=== PATIENT | male | born 1980 | race Two or more races ===

== ENCOUNTER 2022-06-09 13:40 | Inpatient (IN) | payer OTHER, SELFPAY ==
[2022-06-09 14:17] VITALS: BP 118/63; PULSE 127; RESP 20; TEMP 36.4; O2SAT 97; BMI 25.6
[2022-06-09 14:35] LABS: Glucose, Whole Blood 567 mg/dL (60-115)
[2022-06-09 14:38] LABS: Basophils Absolute Auto 0.1 X10*3/uL (0.0-0.2); Basophils Percent Auto 0.4 % (0-2); Hematocrit 46.1 % (42.0-52.0); Hemoglobin 14.6 g/dl (14.0-18.0); Imm Gran Abs Auto 0.12 X10*3/uL (0.00-0.03); Imm Gran Pct Auto 0.5 % (0.0-0.4); Lymphocytes Absolute Auto 0.7 X10*3/uL (1.2-4.9); Lymphocytes Percent Auto 3.2 % (20-40); MANUAL DIFF FLAG SCAN; Mean Corpuscular HGB Conc 31.7 g/dl (31.0-36.0); Mean Corpuscular Hemoglobin 27.4 pg (27.0-33.0); Mean Corpuscular Volume 86.7 fL (80.0-98.0); Mean Platelet Volume 10.8 fL (9.4-12.4); Monocytes Absolute Auto 0.5 X10*3/uL (0.1-1.2); Monocytes Percent Auto 2.1 % (2-11); Neutrophils Absolute Auto 21.1 x10*3/uL (2.0-8.3); Neutrophils Percent Auto 93.8 % (45-73); Platelet Count 350 X10*3/uL (160-400); Red Blood Count 5.32 X10*6/uL (4.60-5.80); Red Cell Distribution Width 13.2 % (11.0-16.0); SCAN SMEAR FLAG 1; White Blood Count 22.5 X10*3/uL (4.8-10.8)
[2022-06-09 14:49] LABS: Acetone, serum QL Large (Negative)
[2022-06-09 14:59] LABS: SLIDE REVIEW VERIFIED
[2022-06-09 15:06] LABS: Alanine Aminotransferase 26 U/L (0-40); Albumin Level 4.8 g/dL (3.5-5.0); Alkaline Phosphatase 110 U/L (39-117); Aspartate Amino Transferase 16 U/L (5-37); Bilirubin Direct 0.2 mg/dL (0.0-0.5); Bilirubin Total 0.4 mg/dL (0.0-1.0); Blood Urea Nitrogen 25 mg/dL (9-16); Calcium 9.3 mg/dL (8.4-10.2); Creatinine Clr Calc Pharmacy 50.4; Estimated Glomerular Filt Rate 37; Lipase 12 U/L (8-78); Total Protein 8.2 g/dL (6.5-8.0)
[2022-06-09 15:11] LABS: Anion Gap 36 (12-20); Carbon Dioxide 5 mmol/L (22-29); Chloride 95 mmol/L (96-108); Glucose Random 709 mg/dL (60-115); Potassium 6.2 mmol/L (3.3-5.1); Sodium 130 mmol/L (135-145)
--- NOTE | 2022-06-09 15:30 | ECG_ITS ---
Test Reason : abnormal labwork Blood Pressure : / mmHG Vent. Rate : 118 BPM Atrial Rate : 118 BPM P-R Int : 150 ms QRS Dur : 086 ms QT Int : 344 ms P-R-T Axes : 064 083 051 degrees QTc Int : 482 ms Sinus tachycardia Otherwise normal ECG No previous ECGs available Referred By: Oma King Electronically Signed By:JUDD BETTENCOURT MD
--- NOTE | 2022-06-09 15:37 | ED.GENADULT ---
HPI - General Adult General Chief complaint: General Medical Stated complaint: weak sugar low diabetic Time Seen by Provider: 06/09/22 15:22 Source: patient Mode of arrival: ambulatory History of Present Illness HPI narrative: Patient comes to the emergency room complaining of hyperglycemia, states that he ran out of insulin 2 days ago. Patient states that he is usually compliant with his medication. Related Data Allergies Allergy/AdvReac Type Severity Reaction Status Date / Time Unable to Assess Allergy Unverified 06/09/22 15:23 Review of Systems Review of Systems: Constitutional : No Weight loss, No Fever, No Chills, No Night Sweats, No Fatigue, No Malaise ENT/Mouth : No Hearing loss, No Ear Pain, No Nasal Congestion, No Sinus Pain, No Hoarseness, No sore throat, No Rhinorrhea, No Swallowing Difficulty Eyes: No Eye Pain, No Swelling, No Redness, No Foreign Body, No Discharge, No Vision Changes Cardiovascular : No Chest Pain, No SOB, No Dyspnea on Exertion, No Orthopnea, No Edema, No Palpitations Respiratory : No Cough, No Sputum, No Wheezing, No Smoke Exposure, No Dyspnea Gastrointestinal : Complaining of nausea and vomiting, No Diarrhea, No Constipation, mild diffuse abdominal discomfort Genitourinary : no irregular bleeding, No Dysuria, No Urinary Frequency, No Hematuria, No Urinary Incontinence, No Urgency, No Flank Pain, No Urinary Flow Changes, No Hesitancy Musculoskeletal : No joint pain, No Myalgias, No Joint Swelling Skin : No Skin Lesions, No rash Neuro : No Weakness, No Numbness, No Paresthesias, No Loss of Consciousness, No Dizziness, No Headache Psych : No Anxiety/Panic, No Depression, No SI/HI/AH/VH, No Social Issues, Heme/Lymph: No Bruising, No Bleeding,No Lymphadenopathy Endocrine : No Polyuria, No Polydipsia, No Temperature Intolerance [facility] Past Medical History Medical History (Updated 06/09/22 @ 16:27 by Oma King MD) Chronic back pain Diabetes Social History Social History Alcohol intake: never Patient Tobacco Use Status: Never used Tobacco Use of substances other than those prescribed or required for medical reasons: No Advance Directives: No Advance Directives Information Provided: No Physical Exam ED Vital Signs: Vital Signs - 24 hr 06/09/22 14:17 Temperature 97.6 F Pulse Rate 127 H Respiratory Rate 20 Blood Pressure 118/63 Pulse Oximetry 97 Oxygen Delivery Method Room Air BMI result Body Mass Index 25.6 Const Other: Appearance: Alert. Oriented X3. No acute distress. Eyes: Pupils equal, round and reactive to light. ENT: Pharynx normal. Neck: Normal inspection. Neck supple. No lymph nodes noted. No crepitus CVS: Normal heart rate and rhythm. Pulses normal. Normal S1 and S2 Respiratory: No respiratory distress. Breath sounds normal. No Wheezing. No rales Abdomen: Soft and nontender. No rigidity. No distention. Skin: Skin warm and dry. Normal skin color. Normal skin turgor. Extremities: No lower extremity edema. No Lacerations. No Rash Neuro: Oriented X 3. No motor deficit. No sensory deficit. Moving all extremities. No slurred speech. CN 2 through 12 grossly intact Psych: calm, cooperative, normal affect Course Course Course Narrative: Patient receiving 2 L of IV fluids, 10 units of insulin push, on an insulin drip, and a bicarb drip. Patient was also given calcium gluconate I discussed the patient with Dr. Landon, patient being admitted for DKA Medical Decision Making Lab Data Result diagrams: 06/09/22 14:30 06/09/22 14:30 Labs: Lab Results 06/09/22 06/09/22 06/09/22 Range/Units 14:07 14:30 14:30 WBC 22.5 H (4.8-10.8) X10*3/uL RBC 5.32 (4.60-5.80) X10*6/uL Hgb 14.6 (14.0-18.0) g/dl Hct 46.1 (42.0-52.0) % MCV 86.7 (80.0-98.0) fL MCH 27.4 (27.0-33.0) pg MCHC 31.7 (31.0-36.0) g/dl RDW 13.2 (11.0-16.0) % Plt Count 350 (160-400) X10*3/uL MPV 10.8 (9.4-12.4) fL Immature Gran % (Auto) 0.5 H (0.0-0.4) % Neut % (Auto) 93.8 H (45-73) % Lymph % (Auto) 3.2 L (20-40) % Alexander % (Auto) 2.1 (2-11) % Eos % (Auto) 0.0 (0-4) % Baso % (Auto) 0.4 (0-2) % Lymph # (Auto) 0.7 L (1.2-4.9) X10*3/uL Alexander # (Auto) 0.5 (0.1-1.2) X10*3/uL Eos # (Auto) 0.0 (0.0-0.4) X10*3/uL Baso # (Auto) 0.1 (0.0-0.2) X10*3/uL Abs Immat Gran (auto) 0.12 H (0.00-0.03) X10*3/uL Absolute Neuts (auto) 21.1 H (2.0-8.3) x10*3/uL Absolute Nucleated RBC 0.000 (0.0-0.012) X10*3/uL Nucleated RBC % (auto) 0.0 (0.0-0.2) /100WBC Smear Tech's Comments VERIFIED Sodium 130 L (135-145) mmol/L Potassium 6.2 H* (3.3-5.1) mmol/L Chloride 95 L (96-108) mmol/L Carbon Dioxide 5 L* (22-29) mmol/L Anion Gap 36 H (12-20) BUN 25 H (9-16) mg/dL Creatinine 1.99 H (0.5-1.4) mg/dL Estim Creat Clear Calc 50.4 Estimated GFR 37 POC Glucose 567 H* (60-115) mg/dL Random Glucose 709 H* (60-115) mg/dL Calcium 9.3 (8.4-10.2) mg/dL Total Bilirubin 0.4 (0.0-1.0) mg/dL Direct Bilirubin 0.2 (0.0-0.5) mg/dL AST 16 (5-37) U/L ALT 26 (0-40) U/L Alkaline Phosphatase 110 (39-117) U/L Total Protein 8.2 H (6.5-8.0) g/dL Albumin 4.8 (3.5-5.0) g/dL Lipase 12 (8-78) U/L Acetone, Qual Cancelled 06/09/22 Range/Units 14:30 WBC (4.8-10.8) X10*3/uL RBC (4.60-5.80) X10*6/uL Hgb (14.0-18.0) g/dl Hct (42.0-52.0) % MCV (80.0-98.0) fL MCH (27.0-33.0) pg MCHC (31.0-36.0) g/dl RDW (11.0-16.0) % Plt Count (160-400) X10*3/uL MPV (9.4-12.4) fL Immature Gran % (Auto) (0.0-0.4) % Neut % (Auto) (45-73) % Lymph % (Auto) (20-40) % Alexander % (Auto) (2-11) % Eos % (Auto) (0-4) % Baso % (Auto) (0-2) % Lymph # (Auto) (1.2-4.9) X10*3/uL Alexander # (Auto) (0.1-1.2) X10*3/uL Eos # (Auto) (0.0-0.4) X10*3/uL Baso # (Auto) (0.0-0.2) X10*3/uL Abs Immat Gran (auto) (0.00-0.03) X10*3/uL Absolute Neuts (auto) (2.0-8.3) x10*3/uL Absolute Nucleated RBC (0.0-0.012) X10*3/uL Nucleated RBC % (auto) (0.0-0.2) /100WBC Smear Tech's Comments Sodium (135-145) mmol/L Potassium (3.3-5.1) mmol/L Chloride (96-108) mmol/L Carbon Dioxide (22-29) mmol/L Anion Gap (12-20) BUN (9-16) mg/dL Creatinine (0.5-1.4) mg/dL Estim Creat Clear Calc Estimated GFR POC Glucose (60-115) mg/dL Random Glucose (60-115) mg/dL Calcium (8.4-10.2) mg/dL Total Bilirubin (0.0-1.0) mg/dL Direct Bilirubin (0.0-0.5) mg/dL AST (5-37) U/L ALT (0-40) U/L Alkaline Phosphatase (39-117) U/L Total Protein (6.5-8.0) g/dL Albumin (3.5-5.0) g/dL Lipase (8-78) U/L Acetone, Qual Large H Critical Care Time Critical Care Time Critical Care Time: Yes Total Critical Care Time: 70 Attestation: I have personally provided critical care time. Time includes review of lab data, radiology results, discussion with consultants, and monitoring for potential decompensation. Intervention performed as documented. Discharge Plan Discharge Clinical Impression: DKA (diabetic ketoacidosis), Acute hyperkalemia, Acute kidney injury Patient Disposition: Admitted As Inpatient
[2022-06-09] MEDS: Insulin Regular, Human 100 UNIT/ML 3 ML VIAL 10 UNIT IVPUSH (15:57)
[2022-06-09] MEDS: ondansetron HCL 4 MG/2 ML VIAL IVPUSH (16:04)
[2022-06-09] MEDS: 0.9 % Sodium Chloride 2,000 ML 999 ML IVCONT (16:05)
[2022-06-09] MEDS: Insulin Regular/NS 100 UNIT/100 ML PLAST..BAG 8 UNIT IVCONT (16:15)
[2022-06-09] MEDS: Calcium Gluconate/NaCl,Iso-Osm 2 GM/100 ML PLAST..BAG IV (16:17)
[2022-06-09 16:25] VITALS: BP 130/54; PULSE 113; RESP 26; O2SAT 100
--- NOTE | 2022-06-09 16:26 | PC.NURSE ---
pt a&ox3, vss - sinus tach on monitor. pt reporting 6/10 chest pain. 20G IV placed left AC, medicated per provider order, 2000mL NaCl running, IV insulin started at 8u/hr. pt pending ICU provider.
[2022-06-09 16:37] LABS: Estimated Average Glucose 335 mg/dL; Hemoglobin A1c % 13.3 %
[2022-06-09] MEDS: Lactated Ringers 500 ML 999 ML IV (16:57)
--- NOTE | 2022-06-09 16:59 | PC.NURSE ---
NaCl discontinued per provider order, 500mL LR running - medication not scanning.
[2022-06-09 17:24] LABS: COVID-19 Test Negative (Negative); IDNOW Serial# 16C4AD1C
[2022-06-09 17:47] LABS: Venous Blood Gas Refer to POC result
[2022-06-09 17:48] LABS: VBG Base Excess -26.7 mmol/L; VBG HCO3 3 mmol/L (22-26); VBG pCO2 15 mmHg; VBG pO2 90 mmHg
[2022-06-09 17:49] LABS: VBG pH 6.95 (7.32-7.43)
--- NOTE | 2022-06-09 17:57 | PHA.MEDREC ---
Pharmacy Consult ? Medication Reconciliation Pharmacy has completed the medication reconciliation. Patient reports only taking insulins and oxycontin. Patient has a recent filled of Percocet on 05/21/22. Patient reports not taking atorvastatin and enalapril even though there are recent fills for the medications. Vangie Dunlap, PharmD
[2022-06-09 18:00] VITALS: BP 123/70; PULSE 131; RESP 23; O2SAT 99
[2022-06-09 18:22] LABS: Glucose, Whole Blood 422 mg/dL (60-115)
[2022-06-09 18:23] LABS: Phosphorus 8.2 mg/dL (2.7-4.5)
--- NOTE | 2022-06-09 18:28 | PC.NURSE ---
IV insulin titrated down to 4u/hr per protocol. urine sample obtained.
[2022-06-09 18:45] LABS: Appearance Urine CLEAR; Color Urine YELLOW; Glucose Urine UA 500 MG/DL (NEG); Leukocyte Esterase Urine NEG (NEG); Nitrite Urine NEG (NEG); PH 5.5 (5.0-8.0); Specific Gravity - Urine >= 1.030 (1.005-1.025); UACC Culture Trigger NO; Urine Blood TRACE (NEG); Urine Ketones >=80 MG/DL (NEG); Urine Protein TRACE MG/DL (NEG-TRACE)
[2022-06-09 18:56] LABS: RBC Urine 0-2 /HPF (0); WBC Urine 0-2 /HPF (0-4)
[2022-06-09 18:57] LABS: Amphetamine Screen Urine Not Detected (Not Detect); Barbiturates, Urine Not Detected (Not Detect); Benzodiazepines Screen Urine Not Detected (Not Detect); Cannabinoid Screen Urine Not Detected (Not Detect); Cocaine Screen Urine Not Detected (Not Detect); Fentanyl, urine Not Detected (Not Detect); Opiate Screen Urine Not Detected (Not Detect); Phencyclidine Screen Urine Not Detected (Not Detect); Squamous Epithelial Cell Urine TRACE /LPF
[2022-06-09 19:25] LABS: Glucose, Whole Blood 354 mg/dL (60-115)
[2022-06-09 20:00] VITALS: BP 122/80; PULSE 117; RESP 18; O2SAT 98
[2022-06-09 20:34] LABS: Glucose, Whole Blood 305 mg/dL (60-115)
[2022-06-09 21:35] LABS: Glucose, Whole Blood 253 mg/dL (60-115)
[2022-06-09 21:50] LABS: Anion Gap 27 (12-20); Blood Urea Nitrogen 24 mg/dL (9-16); Calcium 9.3 mg/dL (8.4-10.2); Carbon Dioxide 9 mmol/L (22-29); Chloride 106 mmol/L (96-108); Creatinine Clr Calc Pharmacy 55.1; Estimated Glomerular Filt Rate 41; Glucose Random 253 mg/dL (60-115); Magnesium 2.2 mg/dL (1.6-2.6); Potassium 4.9 mmol/L (3.3-5.1); Sodium 137 mmol/L (135-145)
--- NOTE | 2022-06-09 21:57 | ED.GENADULT ---
HPI - General Adult General Chief complaint: General Medical Stated complaint: weak sugar low diabetic Time Seen by Provider: 06/09/22 15:22 Source: patient Mode of arrival: ambulatory Related Data Home Medications Medication Instructions Recorded Confirmed insulin glargine-yfgn 100 unit/mL 38 unit subcut BEDTIME 06/09/22 06/09/22 (3 mL) subcutaneous pen insulin lispro 100 unit/mL 12 - 16 unit subcut TIDAC 06/09/22 06/09/22 subcutaneous pen (Admelog SoloStar U-100 Insulin lispro) oxycodone-acetaminophen 5 mg-325 1 tab PO TID PRN Back Pain 06/09/22 06/09/22 mg tablet Allergies Allergy/AdvReac Type Severity Reaction Status Date / Time Unable to Assess Allergy Unverified 06/09/22 15:23 [facility] Past Medical History Medical History (Updated 06/09/22 @ 16:27 by Oma King MD) Chronic back pain Diabetes Social History Social History Alcohol intake: never Patient Tobacco Use Status: Never used Tobacco Use of substances other than those prescribed or required for medical reasons: No Advance Directives: No Advance Directives Information Provided: No Physical Exam ED Vital Signs: Vital Signs - 24 hr 06/09/22 14:17 06/09/22 16:25 06/09/22 18:00 Temperature 97.6 F Pulse Rate 127 H 113 H 131 H Respiratory Rate 20 26 H 23 H Blood Pressure 118/63 130/54 L 123/70 Pulse Oximetry 97 100 99 Oxygen Delivery Method Room Air Room Air Room Air 06/09/22 20:00 06/10/22 00:46 06/10/22 02:00 Temperature 99.6 F 98.3 F Pulse Rate 117 H 119 H 20 L Respiratory Rate 18 16 16 Blood Pressure 122/80 112/71 113/74 Pulse Oximetry 98 98 98 Oxygen Delivery Method Room Air Room Air Room Air 06/10/22 06:00 Temperature Pulse Rate 97 Respiratory Rate 18 Blood Pressure Pulse Oximetry Oxygen Delivery Method BMI result Body Mass Index 25.6 Medical Decision Making MDM Narrative Medical decision making narrative: Took over the case at the change of shift. Patient has diabetic ketoacidosis was kept here in the emergency department overnight. Patient's Bicarb improved overnight while on the insulin drip. Patient was started on D5 normal saline after sugar dropped below 250. Multiple sets of repeat electrolytes were checked. Patient's symptoms improving. In a.m. patient being admitted to the intensive care unit. Lab Data Result diagrams: 06/09/22 14:30 06/10/22 04:09 Labs: Lab Results 06/09/22 06/09/22 06/09/22 Range/Units 14:07 14:30 14:30 WBC 22.5 H (4.8-10.8) X10*3/uL RBC 5.32 (4.60-5.80) X10*6/uL Hgb 14.6 (14.0-18.0) g/dl Hct 46.1 (42.0-52.0) % MCV 86.7 (80.0-98.0) fL MCH 27.4 (27.0-33.0) pg MCHC 31.7 (31.0-36.0) g/dl RDW 13.2 (11.0-16.0) % Plt Count 350 (160-400) X10*3/uL MPV 10.8 (9.4-12.4) fL Immature Gran % (Auto) 0.5 H (0.0-0.4) % Neut % (Auto) 93.8 H (45-73) % Lymph % (Auto) 3.2 L (20-40) % [place] % (Auto) 2.1 (2-11) % Eos % (Auto) 0.0 (0-4) % Baso % (Auto) 0.4 (0-2) % Lymph # (Auto) 0.7 L (1.2-4.9) X10*3/uL [place] # (Auto) 0.5 (0.1-1.2) X10*3/uL Eos # (Auto) 0.0 (0.0-0.4) X10*3/uL Baso # (Auto) 0.1 (0.0-0.2) X10*3/uL Abs Immat Gran (auto) 0.12 H (0.00-0.03) X10*3/uL Absolute Neuts (auto) 21.1 H (2.0-8.3) x10*3/uL Absolute Nucleated RBC 0.000 (0.0-0.012) X10*3/uL Nucleated RBC % (auto) 0.0 (0.0-0.2) /100WBC Smear Tech's Comments VERIFIED VBG pH (7.32-7.43) VBG pCO2 mmHg VBG pO2 mmHg VBG HCO3 (22-26) mmol/L VBG O2 Saturation % VBG Base Excess mmol/L Sodium 130 L (135-145) mmol/L Potassium 6.2 H* (3.3-5.1) mmol/L Chloride 95 L (96-108) mmol/L Carbon Dioxide 5 L* (22-29) mmol/L Anion Gap 36 H (12-20) BUN 25 H (9-16) mg/dL Creatinine 1.99 H (0.5-1.4) mg/dL Estim Creat Clear Calc 50.4 Estimated GFR 37 POC Glucose 567 H* (60-115) mg/dL Random Glucose 709 H* (60-115) mg/dL Estimat Average Glucose mg/dL Hemoglobin A1c % % Calcium 9.3 (8.4-10.2) mg/dL Phosphorus 8.2 H (2.7-4.5) mg/dL Magnesium (1.6-2.6) mg/dL Total Bilirubin 0.4 (0.0-1.0) mg/dL Direct Bilirubin 0.2 (0.0-0.5) mg/dL AST 16 (5-37) U/L ALT 26 (0-40) U/L Alkaline Phosphatase 110 (39-117) U/L Total Protein 8.2 H (6.5-8.0) g/dL Albumin 4.8 (3.5-5.0) g/dL Lipase 12 (8-78) U/L Urine Color Urine Appearance Urine pH (5.0-8.0) Ur Specific [place] (1.005-1.025) Urine Protein (NEG-TRACE) MG/DL Urine Glucose (UA) (NEG) MG/DL Urine Ketones (NEG) MG/DL Urine Blood (NEG) Urine Nitrite (NEG) Ur Leukocyte Esterase (NEG) Urine RBC (0) /HPF Urine WBC (0-4) /HPF Ur Squamous Epith Cells /LPF Urine Bacteria /LPF Urine Opiates Screen (Not Detect) Urine Fentanyl Screen (Not Detect) Ur Barbiturates Screen (Not Detect) Ur Phencyclidine Scrn (Not Detect) Ur Amphetamines Screen (Not Detect) U Benzodiazepines Scrn (Not Detect) Urine Cocaine Screen (Not Detect) U Marijuana (THC) Screen (Not Detect) Acetone, Qual Cancelled COVID-19 ([facility]) (Negative) COVID-19 Clin Com 06/09/22 06/09/22 06/09/22 Range/Units 14:30 14:30 16:53 WBC (4.8-10.8) X10*3/uL RBC (4.60-5.80) X10*6/uL Hgb (14.0-18.0) g/dl Hct (42.0-52.0) % MCV (80.0-98.0) fL MCH (27.0-33.0) pg MCHC (31.0-36.0) g/dl RDW (11.0-16.0) % Plt Count (160-400) X10*3/uL MPV (9.4-12.4) fL Immature Gran % (Auto) (0.0-0.4) % Neut % (Auto) (45-73) % Lymph % (Auto) (20-40) % [place] % (Auto) (2-11) % Eos % (Auto) (0-4) % Baso % (Auto) (0-2) % Lymph # (Auto) (1.2-4.9) X10*3/uL [place] # (Auto) (0.1-1.2) X10*3/uL Eos # (Auto) (0.0-0.4) X10*3/uL Baso # (Auto) (0.0-0.2) X10*3/uL Abs Immat Gran (auto) (0.00-0.03) X10*3/uL Absolute Neuts (auto) (2.0-8.3) x10*3/uL Absolute Nucleated RBC (0.0-0.012) X10*3/uL Nucleated RBC % (auto) (0.0-0.2) /100WBC Smear Tech's Comments VBG pH (7.32-7.43) VBG pCO2 mmHg VBG pO2 mmHg VBG HCO3 (22-26) mmol/L VBG O2 Saturation % VBG Base Excess mmol/L Sodium (135-145) mmol/L Potassium (3.3-5.1) mmol/L Chloride (96-108) mmol/L Carbon Dioxide (22-29) mmol/L Anion Gap (12-20) BUN (9-16) mg/dL Creatinine (0.5-1.4) mg/dL Estim Creat Clear Calc Estimated GFR POC Glucose (60-115) mg/dL Random Glucose (60-115) mg/dL Estimat Average Glucose 335 mg/dL Hemoglobin A1c % 13.3 % Calcium (8.4-10.2) mg/dL Phosphorus (2.7-4.5) mg/dL Magnesium (1.6-2.6) mg/dL Total Bilirubin (0.0-1.0) mg/dL Direct Bilirubin (0.0-0.5) mg/dL AST (5-37) U/L ALT (0-40) U/L Alkaline Phosphatase (39-117) U/L Total Protein (6.5-8.0) g/dL Albumin (3.5-5.0) g/dL Lipase (8-78) U/L Urine Color Urine Appearance Urine pH (5.0-8.0) Ur Specific [place] (1.005-1.025) Urine Protein (NEG-TRACE) MG/DL Urine Glucose (UA) (NEG) MG/DL Urine Ketones (NEG) MG/DL Urine Blood (NEG) Urine Nitrite (NEG) Ur Leukocyte Esterase (NEG) Urine RBC (0) /HPF Urine WBC (0-4) /HPF Ur Squamous Epith Cells /LPF Urine Bacteria /LPF Urine Opiates Screen (Not Detect) Urine Fentanyl Screen (Not Detect) Ur Barbiturates Screen (Not Detect) Ur Phencyclidine Scrn (Not Detect) Ur Amphetamines Screen (Not Detect) U Benzodiazepines Scrn (Not Detect) Urine Cocaine Screen (Not Detect) U Marijuana (THC) Screen (Not Detect) Acetone, Qual Large H COVID-19 ([facility]) Negative (Negative) COVID-19 Clin Com See Note 06/09/22 06/09/22 06/09/22 Range/Units 16:57 18:13 18:34 WBC (4.8-10.8) X10*3/uL RBC (4.60-5.80) X10*6/uL Hgb (14.0-18.0) g/dl Hct (42.0-52.0) % MCV (80.0-98.0) fL MCH (27.0-33.0) pg MCHC (31.0-36.0) g/dl RDW (11.0-16.0) % Plt Count (160-400) X10*3/uL MPV (9.4-12.4) fL Immature Gran % (Auto) (0.0-0.4) % Neut % (Auto) (45-73) % Lymph % (Auto) (20-40) % [place] % (Auto) (2-11) % Eos % (Auto) (0-4) % Baso % (Auto) (0-2) % Lymph # (Auto) (1.2-4.9) X10*3/uL [place] # (Auto) (0.1-1.2) X10*3/uL Eos # (Auto) (0.0-0.4) X10*3/uL Baso # (Auto) (0.0-0.2) X10*3/uL Abs Immat Gran (auto) (0.00-0.03) X10*3/uL Absolute Neuts (auto) (2.0-8.3) x10*3/uL Absolute Nucleated RBC (0.0-0.012) X10*3/uL Nucleated RBC % (auto) (0.0-0.2) /100WBC Smear Tech's Comments VBG pH 6.95 L* (7.32-7.43) VBG pCO2 15 mmHg VBG pO2 90 mmHg VBG HCO3 3 L (22-26) mmol/L VBG O2 Saturation 93.0 % VBG Base Excess -26.7 mmol/L Sodium (135-145) mmol/L Potassium (3.3-5.1) mmol/L Chloride (96-108) mmol/L Carbon Dioxide (22-29) mmol/L Anion Gap (12-20) BUN (9-16) mg/dL Creatinine (0.5-1.4) mg/dL Estim Creat Clear Calc Estimated GFR POC Glucose 422 H* (60-115) mg/dL Random Glucose (60-115) mg/dL Estimat Average Glucose mg/dL Hemoglobin A1c % % Calcium (8.4-10.2) mg/dL Phosphorus (2.7-4.5) mg/dL Magnesium (1.6-2.6) mg/dL Total Bilirubin (0.0-1.0) mg/dL Direct Bilirubin (0.0-0.5) mg/dL AST (5-37) U/L ALT (0-40) U/L Alkaline Phosphatase (39-117) U/L Total Protein (6.5-8.0) g/dL Albumin (3.5-5.0) g/dL Lipase (8-78) U/L Urine Color YELLOW Urine Appearance CLEAR Urine pH 5.5 (5.0-8.0) Ur Specific [place] >= 1.030 H (1.005-1.025) Urine Protein TRACE (NEG-TRACE) MG/DL Urine Glucose (UA) 500 H (NEG) MG/DL Urine Ketones >=80 (NEG) MG/DL Urine Blood TRACE (NEG) Urine Nitrite NEG (NEG) Ur Leukocyte Esterase NEG (NEG) Urine RBC 0-2 (0) /HPF Urine WBC 0-2 (0-4) /HPF Ur Squamous Epith Cells TRACE /LPF Urine Bacteria NONE /LPF Urine Opiates Screen (Not Detect) Urine Fentanyl Screen (Not Detect) Ur Barbiturates Screen (Not Detect) Ur Phencyclidine Scrn (Not Detect) Ur Amphetamines Screen (Not Detect) U Benzodiazepines Scrn (Not Detect) Urine Cocaine Screen (Not Detect) U Marijuana (THC) Screen (Not Detect) Acetone, Qual COVID-19 ([facility]) (Negative) COVID-19 Clin Com 06/09/22 06/09/22 06/09/22 Range/Units 18:34 19:21 20:31 WBC (4.8-10.8) X10*3/uL RBC (4.60-5.80) X10*6/uL Hgb (14.0-18.0) g/dl Hct (42.0-52.0) % MCV (80.0-98.0) fL MCH (27.0-33.0) pg MCHC (31.0-36.0) g/dl RDW (11.0-16.0) % Plt Count (160-400) X10*3/uL MPV (9.4-12.4) fL Immature Gran % (Auto) (0.0-0.4) % Neut % (Auto) (45-73) % Lymph % (Auto) (20-40) % [place] % (Auto) (2-11) % Eos % (Auto) (0-4) % Baso % (Auto) (0-2) % Lymph # (Auto) (1.2-4.9) X10*3/uL [place] # (Auto) (0.1-1.2) X10*3/uL Eos # (Auto) (0.0-0.4) X10*3/uL Baso # (Auto) (0.0-0.2) X10*3/uL Abs Immat Gran (auto) (0.00-0.03) X10*3/uL Absolute Neuts (auto) (2.0-8.3) x10*3/uL Absolute Nucleated RBC (0.0-0.012) X10*3/uL Nucleated RBC % (auto) (0.0-0.2) /100WBC Smear Tech's Comments VBG pH (7.32-7.43) VBG pCO2 mmHg VBG pO2 mmHg VBG HCO3 (22-26) mmol/L VBG O2 Saturation % VBG Base Excess mmol/L Sodium (135-145) mmol/L Potassium (3.3-5.1) mmol/L Chloride (96-108) mmol/L Carbon Dioxide (22-29) mmol/L Anion Gap (12-20) BUN (9-16) mg/dL Creatinine (0.5-1.4) mg/dL Estim Creat Clear Calc Estimated GFR POC Glucose 354 H* 305 H (60-115) mg/dL Random Glucose (60-115) mg/dL Estimat Average Glucose mg/dL Hemoglobin A1c % % Calcium (8.4-10.2) mg/dL Phosphorus (2.7-4.5) mg/dL Magnesium (1.6-2.6) mg/dL Total Bilirubin (0.0-1.0) mg/dL Direct Bilirubin (0.0-0.5) mg/dL AST (5-37) U/L ALT (0-40) U/L Alkaline Phosphatase (39-117) U/L Total Protein (6.5-8.0) g/dL Albumin (3.5-5.0) g/dL Lipase (8-78) U/L Urine Color Urine Appearance Urine pH (5.0-8.0) Ur Specific [place] (1.005-1.025) Urine Protein (NEG-TRACE) MG/DL Urine Glucose (UA) (NEG) MG/DL Urine Ketones (NEG) MG/DL Urine Blood (NEG) Urine Nitrite (NEG) Ur Leukocyte Esterase (NEG) Urine RBC (0) /HPF Urine WBC (0-4) /HPF Ur Squamous Epith Cells /LPF Urine Bacteria /LPF Urine Opiates Screen Not Detected (Not Detect) Urine Fentanyl Screen Not Detected (Not Detect) Ur Barbiturates Screen Not Detected (Not Detect) Ur Phencyclidine Scrn Not Detected (Not Detect) Ur Amphetamines Screen Not Detected (Not Detect) U Benzodiazepines Scrn Not Detected (Not Detect) Urine Cocaine Screen Not Detected (Not Detect) U Marijuana (THC) Screen Not Detected (Not Detect) Acetone, Qual COVID-19 ([facility]) (Negative) COVID-19 Clin Com 06/09/22 06/09/22 06/09/22 Range/Units 21:21 21:30 22:17 WBC (4.8-10.8) X10*3/uL RBC (4.60-5.80) X10*6/uL Hgb (14.0-18.0) g/dl Hct (42.0-52.0) % MCV (80.0-98.0) fL MCH (27.0-33.0) pg MCHC (31.0-36.0) g/dl RDW (11.0-16.0) % Plt Count (160-400) X10*3/uL MPV (9.4-12.4) fL Immature Gran % (Auto) (0.0-0.4) % Neut % (Auto) (45-73) % Lymph % (Auto) (20-40) % [place] % (Auto) (2-11) % Eos % (Auto) (0-4) % Baso % (Auto) (0-2) % Lymph # (Auto) (1.2-4.9) X10*3/uL [place] # (Auto) (0.1-1.2) X10*3/uL Eos # (Auto) (0.0-0.4) X10*3/uL Baso # (Auto) (0.0-0.2) X10*3/uL Abs Immat Gran (auto) (0.00-0.03) X10*3/uL Absolute Neuts (auto) (2.0-8.3) x10*3/uL Absolute Nucleated RBC (0.0-0.012) X10*3/uL Nucleated RBC % (auto) (0.0-0.2) /100WBC Smear Tech's Comments VBG pH (7.32-7.43) VBG pCO2 mmHg VBG pO2 mmHg VBG HCO3 (22-26) mmol/L VBG O2 Saturation % VBG Base Excess mmol/L Sodium 137 (135-145) mmol/L Potassium 4.9 D (3.3-5.1) mmol/L Chloride 106 (96-108) mmol/L Carbon Dioxide 9 L* D (22-29) mmol/L Anion Gap 27 H (12-20) BUN 24 H (9-16) mg/dL Creatinine 1.82 H (0.5-1.4) mg/dL Estim Creat Clear Calc 55.1 Estimated GFR 41 POC Glucose 253 H 193 H (60-115) mg/dL Random Glucose 253 H D (60-115) mg/dL Estimat Average Glucose mg/dL Hemoglobin A1c % % Calcium 9.3 (8.4-10.2) mg/dL Phosphorus (2.7-4.5) mg/dL Magnesium 2.2 (1.6-2.6) mg/dL Total Bilirubin (0.0-1.0) mg/dL Direct Bilirubin (0.0-0.5) mg/dL AST (5-37) U/L ALT (0-40) U/L Alkaline Phosphatase (39-117) U/L Total Protein (6.5-8.0) g/dL Albumin (3.5-5.0) g/dL Lipase (8-78) U/L Urine Color Urine Appearance Urine pH (5.0-8.0) Ur Specific [place] (1.005-1.025) Urine Protein (NEG-TRACE) MG/DL Urine Glucose (UA) (NEG) MG/DL Urine Ketones (NEG) MG/DL Urine Blood (NEG) Urine Nitrite (NEG) Ur Leukocyte Esterase (NEG) Urine RBC (0) /HPF Urine WBC (0-4) /HPF Ur Squamous Epith Cells /LPF Urine Bacteria /LPF Urine Opiates Screen (Not Detect) Urine Fentanyl Screen (Not Detect) Ur Barbiturates Screen (Not Detect) Ur Phencyclidine Scrn (Not Detect) Ur Amphetamines Screen (Not Detect) U Benzodiazepines Scrn (Not Detect) Urine Cocaine Screen (Not Detect) U Marijuana (THC) Screen (Not Detect) Acetone, Qual COVID-19 ([facility]) (Negative) COVID-19 Clin Com 06/09/22 06/10/22 06/10/22 Range/Units 23:15 00:04 00:45 WBC (4.8-10.8) X10*3/uL RBC (4.60-5.80) X10*6/uL Hgb (14.0-18.0) g/dl Hct (42.0-52.0) % MCV (80.0-98.0) fL MCH (27.0-33.0) pg MCHC (31.0-36.0) g/dl RDW (11.0-16.0) % Plt Count (160-400) X10*3/uL MPV (9.4-12.4) fL Immature Gran % (Auto) (0.0-0.4) % Neut % (Auto) (45-73) % Lymph % (Auto) (20-40) % [place] % (Auto) (2-11) % Eos % (Auto) (0-4) % Baso % (Auto) (0-2) % Lymph # (Auto) (1.2-4.9) X10*3/uL [place] # (Auto) (0.1-1.2) X10*3/uL Eos # (Auto) (0.0-0.4) X10*3/uL Baso # (Auto) (0.0-0.2) X10*3/uL Abs Immat Gran (auto) (0.00-0.03) X10*3/uL Absolute Neuts (auto) (2.0-8.3) x10*3/uL Absolute Nucleated RBC (0.0-0.012) X10*3/uL Nucleated RBC % (auto) (0.0-0.2) /100WBC Smear Tech's Comments VBG pH (7.32-7.43) VBG pCO2 mmHg VBG pO2 mmHg VBG HCO3 (22-26) mmol/L VBG O2 Saturation % VBG Base Excess mmol/L Sodium 139 (135-145) mmol/L Potassium 5.0 (3.3-5.1) mmol/L Chloride 110 H (96-108) mmol/L Carbon Dioxide 11 L (22-29) mmol/L Anion Gap 23 H (12-20) BUN 24 H (9-16) mg/dL Creatinine 1.62 H (0.5-1.4) mg/dL Estim Creat Clear Calc 61.9 Estimated GFR 47 POC Glucose 153 H 116 H (60-115) mg/dL Random Glucose 115 D (60-115) mg/dL Estimat Average Glucose mg/dL Hemoglobin A1c % % Calcium 9.6 (8.4-10.2) mg/dL Phosphorus (2.7-4.5) mg/dL Magnesium 2.2 (1.6-2.6) mg/dL Total Bilirubin (0.0-1.0) mg/dL Direct Bilirubin (0.0-0.5) mg/dL AST (5-37) U/L ALT (0-40) U/L Alkaline Phosphatase (39-117) U/L Total Protein (6.5-8.0) g/dL Albumin (3.5-5.0) g/dL Lipase (8-78) U/L Urine Color Urine Appearance Urine pH (5.0-8.0) Ur Specific [place] (1.005-1.025) Urine Protein (NEG-TRACE) MG/DL Urine Glucose (UA) (NEG) MG/DL Urine Ketones (NEG) MG/DL Urine Blood (NEG) Urine Nitrite (NEG) Ur Leukocyte Esterase (NEG) Urine RBC (0) /HPF Urine WBC (0-4) /HPF Ur Squamous Epith Cells /LPF Urine Bacteria /LPF Urine Opiates Screen (Not Detect) Urine Fentanyl Screen (Not Detect) Ur Barbiturates Screen (Not Detect) Ur Phencyclidine Scrn (Not Detect) Ur Amphetamines Screen (Not Detect) U Benzodiazepines Scrn (Not Detect) Urine Cocaine Screen (Not Detect) U Marijuana (THC) Screen (Not Detect) Acetone, Qual COVID-19 ([facility]) (Negative) COVID-19 Clin Com 06/10/22 06/10/22 06/10/22 Range/Units 01:21 02:01 02:40 WBC (4.8-10.8) X10*3/uL RBC (4.60-5.80) X10*6/uL Hgb (14.0-18.0) g/dl Hct (42.0-52.0) % MCV (80.0-98.0) fL MCH (27.0-33.0) pg MCHC (31.0-36.0) g/dl RDW (11.0-16.0) % Plt Count (160-400) X10*3/uL MPV (9.4-12.4) fL Immature Gran % (Auto) (0.0-0.4) % Neut % (Auto) (45-73) % Lymph % (Auto) (20-40) % [place] % (Auto) (2-11) % Eos % (Auto) (0-4) % Baso % (Auto) (0-2) % Lymph # (Auto) (1.2-4.9) X10*3/uL [place] # (Auto) (0.1-1.2) X10*3/uL Eos # (Auto) (0.0-0.4) X10*3/uL Baso # (Auto) (0.0-0.2) X10*3/uL Abs Immat Gran (auto) (0.00-0.03) X10*3/uL Absolute Neuts (auto) (2.0-8.3) x10*3/uL Absolute Nucleated RBC (0.0-0.012) X10*3/uL Nucleated RBC % (auto) (0.0-0.2) /100WBC Smear Tech's Comments VBG pH (7.32-7.43) VBG pCO2 mmHg VBG pO2 mmHg VBG HCO3 (22-26) mmol/L VBG O2 Saturation % VBG Base Excess mmol/L Sodium (135-145) mmol/L Potassium (3.3-5.1) mmol/L Chloride (96-108) mmol/L Carbon Dioxide (22-29) mmol/L Anion Gap (12-20) BUN (9-16) mg/dL Creatinine (0.5-1.4) mg/dL Estim Creat Clear Calc Estimated GFR POC Glucose 112 93 116 H (60-115) mg/dL Random Glucose (60-115) mg/dL Estimat Average Glucose mg/dL Hemoglobin A1c % % Calcium (8.4-10.2) mg/dL Phosphorus (2.7-4.5) mg/dL Magnesium (1.6-2.6) mg/dL Total Bilirubin (0.0-1.0) mg/dL Direct Bilirubin (0.0-0.5) mg/dL AST (5-37) U/L ALT (0-40) U/L Alkaline Phosphatase (39-117) U/L Total Protein (6.5-8.0) g/dL Albumin (3.5-5.0) g/dL Lipase (8-78) U/L Urine Color Urine Appearance Urine pH (5.0-8.0) Ur Specific [place] (1.005-1.025) Urine Protein (NEG-TRACE) MG/DL Urine Glucose (UA) (NEG) MG/DL Urine Ketones (NEG) MG/DL Urine Blood (NEG) Urine Nitrite (NEG) Ur Leukocyte Esterase (NEG) Urine RBC (0) /HPF Urine WBC (0-4) /HPF Ur Squamous Epith Cells /LPF Urine Bacteria /LPF Urine Opiates Screen (Not Detect) Urine Fentanyl Screen (Not Detect) Ur Barbiturates Screen (Not Detect) Ur Phencyclidine Scrn (Not Detect) Ur Amphetamines Screen (Not Detect) U Benzodiazepines Scrn (Not Detect) Urine Cocaine Screen (Not Detect) U Marijuana (THC) Screen (Not Detect) Acetone, Qual COVID-19 ([facility]) (Negative) COVID-19 Clin Com 06/10/22 Range/Units 04:09 WBC (4.8-10.8) X10*3/uL RBC (4.60-5.80) X10*6/uL Hgb (14.0-18.0) g/dl Hct (42.0-52.0) % MCV (80.0-98.0) fL MCH (27.0-33.0) pg MCHC (31.0-36.0) g/dl RDW (11.0-16.0) % Plt Count (160-400) X10*3/uL MPV (9.4-12.4) fL Immature Gran % (Auto) (0.0-0.4) % Neut % (Auto) (45-73) % Lymph % (Auto) (20-40) % [place] % (Auto) (2-11) % Eos % (Auto) (0-4) % Baso % (Auto) (0-2) % Lymph # (Auto) (1.2-4.9) X10*3/uL [place] # (Auto) (0.1-1.2) X10*3/uL Eos # (Auto) (0.0-0.4) X10*3/uL Baso # (Auto) (0.0-0.2) X10*3/uL Abs Immat Gran (auto) (0.00-0.03) X10*3/uL Absolute Neuts (auto) (2.0-8.3) x10*3/uL Absolute Nucleated RBC (0.0-0.012) X10*3/uL Nucleated RBC % (auto) (0.0-0.2) /100WBC Smear Tech's Comments VBG pH (7.32-7.43) VBG pCO2 mmHg VBG pO2 mmHg VBG HCO3 (22-26) mmol/L VBG O2 Saturation % VBG Base Excess mmol/L Sodium 140 (135-145) mmol/L Potassium 4.3 (3.3-5.1) mmol/L Chloride 110 H (96-108) mmol/L Carbon Dioxide 13 L (22-29) mmol/L Anion Gap 21 H (12-20) BUN 23 H (9-16) mg/dL Creatinine 1.46 H (0.5-1.4) mg/dL Estim Creat Clear Calc 68.7 Estimated GFR 53 POC Glucose (60-115) mg/dL Random Glucose 179 H D (60-115) mg/dL Estimat Average Glucose mg/dL Hemoglobin A1c % % Calcium 9.1 (8.4-10.2) mg/dL Phosphorus (2.7-4.5) mg/dL Magnesium 1.9 (1.6-2.6) mg/dL Total Bilirubin (0.0-1.0) mg/dL Direct Bilirubin (0.0-0.5) mg/dL AST (5-37) U/L ALT (0-40) U/L Alkaline Phosphatase (39-117) U/L Total Protein (6.5-8.0) g/dL Albumin (3.5-5.0) g/dL Lipase (8-78) U/L Urine Color Urine Appearance Urine pH (5.0-8.0) Ur Specific [place] (1.005-1.025) Urine Protein (NEG-TRACE) MG/DL Urine Glucose (UA) (NEG) MG/DL Urine Ketones (NEG) MG/DL Urine Blood (NEG) Urine Nitrite (NEG) Ur Leukocyte Esterase (NEG) Urine RBC (0) /HPF Urine WBC (0-4) /HPF Ur Squamous Epith Cells /LPF Urine Bacteria /LPF Urine Opiates Screen (Not Detect) Urine Fentanyl Screen (Not Detect) Ur Barbiturates Screen (Not Detect) Ur Phencyclidine Scrn (Not Detect) Ur Amphetamines Screen (Not Detect) U Benzodiazepines Scrn (Not Detect) Urine Cocaine Screen (Not Detect) U Marijuana (THC) Screen (Not Detect) Acetone, Qual COVID-19 ([facility]) (Negative) COVID-19 Clin Com Critical Care Time Critical Care Time Critical Care Time: Yes Total Critical Care Time: 50 Attestation: I have personally provided 50 minutes of critical care time exclusive of time spent on separately billable procedures. Time includes review of lab data, radiology results, discussion with consultants, and monitoring for potential decompensation. Interventions were performed as documented above Discharge Plan Discharge Clinical Impression: DKA (diabetic ketoacidosis), Acute hyperkalemia, Acute kidney injury Patient Disposition: Admitted As Inpatient
[2022-06-09 22:22] LABS: Glucose, Whole Blood 193 mg/dL (60-115)
[2022-06-10] VITALS (11 sets, daily range): BP systolic 91–135; BP diastolic 50–75; PULSE 20–119; RESP 12–20; TEMP 36.8–37.6; O2SAT 97–100
[2022-06-10] MEDS: Dextrose 5 % and 0.9 % NaCl 1,000 ML 125 ML IVCONT ×2 (00:10→08:11)
[2022-06-10 00:51] LABS: Glucose, Whole Blood 153 mg/dL (60-115)
[2022-06-10 00:51] LABS: Glucose, Whole Blood 116 mg/dL (60-115)
[2022-06-10 00:56] LABS: Anion Gap 23 (12-20); Blood Urea Nitrogen 24 mg/dL (9-16); Calcium 9.6 mg/dL (8.4-10.2); Carbon Dioxide 11 mmol/L (22-29); Chloride 110 mmol/L (96-108); Creatinine Clr Calc Pharmacy 61.9; Estimated Glomerular Filt Rate 47; Glucose Random 115 mg/dL (60-115); Magnesium 2.2 mg/dL (1.6-2.6); Sodium 139 mmol/L (135-145)
[2022-06-10 01:26] LABS: Glucose, Whole Blood 112 mg/dL (60-115)
[2022-06-10 02:11] LABS: Glucose, Whole Blood 93 mg/dL (60-115)
[2022-06-10 02:44] LABS: Glucose, Whole Blood 116 mg/dL (60-115)
[2022-06-10] MEDS: Acetaminophen 325 MG TABLET 650 MG PO (04:05)
[2022-06-10] MEDS: ondansetron HCL 4 MG/2 ML VIAL IVPUSH (04:07)
--- NOTE | 2022-06-10 04:12 | PC.NURSE ---
medicated per provider order - pt reporting 8/10 headache and nausea, IV insulin paused.
[2022-06-10 04:34] LABS: Anion Gap 21 (12-20); Blood Urea Nitrogen 23 mg/dL (9-16); Calcium 9.1 mg/dL (8.4-10.2); Carbon Dioxide 13 mmol/L (22-29); Chloride 110 mmol/L (96-108); Creatinine Clr Calc Pharmacy 68.7; Estimated Glomerular Filt Rate 53; Glucose Random 179 mg/dL (60-115); Magnesium 1.9 mg/dL (1.6-2.6); Potassium 4.3 mmol/L (3.3-5.1); Sodium 140 mmol/L (135-145)
--- NOTE | 2022-06-10 05:01 | PC.NURSE ---
inulin drip restarted at 2u/hr per provider order.
--- NOTE | 2022-06-10 06:38 | PC.NURSE ---
spoke w ICU provider, insulin drip increased to 4u, D5NS increased to 200mL.
[2022-06-10 07:10] LABS: Blood Urea Nitrogen 22 mg/dL (9-16); Calcium 8.5 mg/dL (8.4-10.2); Creatinine Clr Calc Pharmacy 69.2; Estimated Glomerular Filt Rate 54; Glucose Random 296 mg/dL (60-115); Magnesium 1.8 mg/dL (1.6-2.6)
[2022-06-10 07:32] LABS: Anion Gap 23 (12-20); Carbon Dioxide 9 mmol/L (22-29); Chloride 111 mmol/L (96-108); Potassium 4.5 mmol/L (3.3-5.1); Sodium 138 mmol/L (135-145)
--- NOTE | 2022-06-10 07:59 | MHC.CM.PN ---
Met with patient in regards to discharge planning. Patient lives with his girlfriend in [place], ambulates independently and had no services prior to coming to the hospital. PCP is in [place]. Patient received 2 Covid vaccines. Patient has been in [place] only visiting. He was supposed to return to [place] on 06/09. Patient denies having a HCP and is not interested in completing one at this time. Has transportation when medically stable. Continue to monitor for d/c needs.
[2022-06-10] MEDS: Sodium Bicarbonate 8.4% 50 MEQ/50 ML SYRINGE IVPUSH (08:12)
[2022-06-10 08:51] LABS: Glucose, Whole Blood 243 mg/dL (60-115)
[2022-06-10 09:45] LABS: Glucose, Whole Blood 234 mg/dL (60-115)
[2022-06-10 10:41] LABS: Glucose, Whole Blood 218 mg/dL (60-115)
--- NOTE | 2022-06-10 10:50 | PC.NURSE ---
POC readings in 200s and therefore DKA protocol using algorithm #2 not applicable. Therefore, algorithm 1 was used to titrate drip at this time. Will re-check in 1 hour.
[2022-06-10] MEDS: Heparin Sodium,Porcine 5,000 UNIT/ML VIAL 5000 UNIT SUBCUT (11:07)
[2022-06-10] MEDS: Pantoprazole Sodium 40 MG/10 ML VIAL IVPUSH (11:07)
[2022-06-10] MEDS: Insulin Regular/NS 100 UNIT/100 ML PLAST..BAG 6 UNIT IVCONT (11:07)
[2022-06-10 11:48] LABS: Glucose, Whole Blood 219 mg/dL (60-115)
[2022-06-10 12:32] LABS: Anion Gap 13 (12-20); Blood Urea Nitrogen 19 mg/dL (9-16); Calcium 8.7 mg/dL (8.4-10.2); Carbon Dioxide 22 mmol/L (22-29); Chloride 111 mmol/L (96-108); Creatinine Clr Calc Pharmacy 73.8; Estimated Glomerular Filt Rate 58; Glucose Random 209 mg/dL (60-115); Potassium 3.7 mmol/L (3.3-5.1); Sodium 142 mmol/L (135-145)
[2022-06-10 12:41] LABS: Glucose, Whole Blood 166 mg/dL (60-115)
--- NOTE | 2022-06-10 13:10 | PC.NURSE ---
Sofia CLEMENS wind projects supervisor in contact with [facility] regarding pt's latest lab results to gain further orders/instructions.
[2022-06-10 13:47] LABS: Glucose, Whole Blood 105 mg/dL (60-115)
[2022-06-10] MEDS: Potassium Chloride Packet 20 MEQ PACKET 40 MEQ PO (14:25)
[2022-06-10] MEDS: Lactated Ringers 1,000 ML 100 ML IVCONT (14:27)
--- NOTE | 2022-06-10 14:28 | P.HPCC_ITS ---
History of Present Illness Date of Service: 06/10/22 Attending physician on admission: Jonathan Landon Chief Complaint: DKA Mr. Lazcano is admitted to [facility] with DKA. The patient is a 41-year-old male with PMHx of DM, on insulin.? Never been to [facility] before.? Came ambulatory to the emergency room yesterday afternoon complaining of hyperglycemia, stated that he ran out of insulin 2 days prior.? He says that he is usually compliant with his medication, but he told me that he had two prior episodes of DKA, and his last hemoglobin A1c was 14.? He also has had previous renal dysfunction. In the ED, the patient was fully alert and oriented.? He was tachycardic but otherwise had unremarkable vital signs, with a respiratory rate of 20.? General physical exam was unremarkable.? Labs in the ED were notable for a white count of 22; chemistries were notable for a glucose of 709, bicarb of 5, BUN/creatinine 25/1.9, potassium 6.2, sodium of 130. ?Hemoglobin A1c was 13. The patient was started on volume resuscitation and insulin.? The plan was to admit him to the ICU, but no beds were available so he was held in the ED and managed by the ED physicians. ?Through the afternoon and the evening, his labs corrected nicely, as per the usual course.? Late last night on the insulin drip, his POC dropped below 200, and he was changed to dextrose containing IV fluids.? Early this morning his insulin drip was stopped by mistake leading to a widening of his anion gap.? The insulin drip was restarted.? We had written to admit him to the ICU this morning, but that had to be deferred for triage. ?By noon today, the gap closed and his bicarb normalized.? The patient is therefore now being admitted to [facility]. On my exam, he looks just a bit washed out but otherwise entirely well, thoroughly nontoxic.? He just finished eating lunch.? His protoplasm (skin and soft tissue) looks excellent.? Breathing easy with sat 100% on room air.? Heart rate is 99, blood pressure is 114/71.? He?s been afebrile.? Anicteric.? No jugular venous distention with the head of the bed at about 40 degrees.? Chest clear to auscultation.? Heart rate and rhythm are regular, with normal-sounding S1 and S2, with no murmur or gallops.? Abdomen is nondistended and benign.? He has no peripheral edema.? Both feet are warm and well perfused. LABORATORY DATA:? As below.? Notably, last point of care at 13:41 was 105.? (The insulin drip is off and he is on LR at 100 cc/hour.) ?Last chemistries at 12 noon showed a BUN/creatinine 19/1.3, bicarb 22, anion gap 13, sodium 142, potassium 3.7. IMPRESSION: 1. Diabetes.? Based on his history, and his hemoglobin A1c, it would seem that his compliance is not quite up to par as he claims.? I spoke to him about that and about the long-term complications of diabetes at some length. 2. DKA.? Treatment per usual fashion.? Should be able to restart his long- acting insulin tomorrow morning. 3. ? CKD.? Given the history and his current creatinine level, it wouldn?t surprise me if his current renal indices are back to baseline, and he does, in fact, have stage I or 2 CKD. Stable for admission to med surg.? I signed out to Gabby Matthews. [facility] Past Medical History Medical History (Updated 06/09/22 @ 16:27 by Oma King MD) Chronic back pain Diabetes Social History Social History Alcohol intake: never Patient Tobacco Use Status: Never used Tobacco Use of substances other than those prescribed or required for medical reasons: No Advance Directives: No Advance Directives Information Provided: No service: No Current occupational status: unemployed Meds Allergies Allergy/AdvReac Type Severity Reaction Status Date / Time No Known Allergies Allergy Verified 06/10/22 11:54 Active Medications: Current Medications Lactated Ringer's (Lr) 1,000 mls @ 100 mls/hr IVCONT .Q10H JAYLON Insulin Human Lispro (Insulin Lispro 100 Unit/Ml 3 Ml Vial) 0 unit SUBCUT Q6H JAYLON; Protocol Pantoprazole Sodium (Pantoprazole Sodium 40 Mg/10 Ml Vial) 40 mg IVPUSH DAILY@0630 JAYLON Last Admin: 06/10/22 11:07 Dose: 40 mg Home Medications Medication Instructions Recorded Confirmed Last Taken Type insulin glargine-yfgn 100 unit/mL 38 unit subcut BEDTIME 06/09/22 06/09/22 06/07/22 History (3 mL) subcutaneous pen insulin lispro 100 unit/mL 12 - 16 unit subcut TIDAC 06/09/22 06/09/22 06/07/22 History subcutaneous pen (Admelog SoloStar U-100 Insulin lispro) oxycodone-acetaminophen 5 mg-325 1 tab PO TID PRN Back Pain 06/09/22 06/09/22 Unknown History mg tablet Physical Exam Vital Signs: Vital Signs: Last Vital Signs Temp 98.4 F 06/10/22 10:38 Pulse 99 06/10/22 13:42 Resp 19 06/10/22 13:42 BP 114/71 06/10/22 13:42 Pulse Ox 100 06/10/22 13:42 O2 Del Method 06/10/22 13:42 BMI result Body Mass Index 25.6 Results Labs CBC and Chem 7: 06/09/22 14:30 06/10/22 14:49 Labs: Laboratory Results - last 24 hr 06/09/22 06/09/22 06/09/22 14:07 14:30 14:30 MCV 86.7 MCH 27.4 MCHC 31.7 RDW 13.2 Plt Count 350 MPV 10.8 Immature Gran % (Auto) 0.5 H Neut % (Auto) 93.8 H Lymph % (Auto) 3.2 L [place] % (Auto) 2.1 Eos % (Auto) 0.0 Baso % (Auto) 0.4 Lymph # (Auto) 0.7 L [place] # (Auto) 0.5 Eos # (Auto) 0.0 Baso # (Auto) 0.1 Abs Immat Gran (auto) 0.12 H Absolute Neuts (auto) 21.1 H Absolute Nucleated RBC 0.000 Nucleated RBC % (auto) 0.0 Smear Tech's Comments VERIFIED VBG pH VBG pCO2 VBG pO2 VBG HCO3 VBG O2 Saturation VBG Base Excess Anion Gap 36 H Estim Creat Clear Calc 50.4 Estimated GFR 37 POC Glucose 567 H* Random Glucose 709 H* Estimat Average Glucose Hemoglobin A1c % Calcium 9.3 Phosphorus 8.2 H Magnesium Total Bilirubin 0.4 Direct Bilirubin 0.2 AST 16 ALT 26 Alkaline Phosphatase 110 Total Protein 8.2 H Albumin 4.8 Lipase 12 Urine Color Urine Appearance Urine pH Ur Specific [place] Urine Protein Urine Glucose (UA) Urine Ketones Urine Blood Urine Nitrite Ur Leukocyte Esterase Urine RBC Urine WBC Ur Squamous Epith Cells Urine Bacteria Urine Opiates Screen Urine Fentanyl Screen Ur Barbiturates Screen Ur Phencyclidine Scrn Ur Amphetamines Screen U Benzodiazepines Scrn Urine Cocaine Screen U Marijuana (THC) Screen Acetone, Qual Cancelled COVID-19 ([facility]AN) COVID-19 Clin Com 06/09/22 06/09/22 06/09/22 14:30 14:30 16:53 MCV MCH MCHC RDW Plt Count MPV Immature Gran % (Auto) Neut % (Auto) Lymph % (Auto) [place] % (Auto) Eos % (Auto) Baso % (Auto) Lymph # (Auto) [place] # (Auto) Eos # (Auto) Baso # (Auto) Abs Immat Gran (auto) Absolute Neuts (auto) Absolute Nucleated RBC Nucleated RBC % (auto) Smear Tech's Comments VBG pH VBG pCO2 VBG pO2 VBG HCO3 VBG O2 Saturation VBG Base Excess Anion Gap Estim Creat Clear Calc Estimated GFR POC Glucose Random Glucose Estimat Average Glucose 335 Hemoglobin A1c % 13.3 Calcium Phosphorus Magnesium Total Bilirubin Direct Bilirubin AST ALT Alkaline Phosphatase Total Protein Albumin Lipase Urine Color Urine Appearance Urine pH Ur Specific [place] Urine Protein Urine Glucose (UA) Urine Ketones Urine Blood Urine Nitrite Ur Leukocyte Esterase Urine RBC Urine WBC Ur Squamous Epith Cells Urine Bacteria Urine Opiates Screen Urine Fentanyl Screen Ur Barbiturates Screen Ur Phencyclidine Scrn Ur Amphetamines Screen U Benzodiazepines Scrn Urine Cocaine Screen U Marijuana (THC) Screen Acetone, Qual Large H COVID-19 (ME[facility]AN) Negative COVID-19 Clin Com See Note 06/09/22 06/09/22 06/09/22 16:57 18:13 18:34 MCV MCH MCHC RDW Plt Count MPV Immature Gran % (Auto) Neut % (Auto) Lymph % (Auto) [place] % (Auto) Eos % (Auto) Baso % (Auto) Lymph # (Auto) [place] # (Auto) Eos # (Auto) Baso # (Auto) Abs Immat Gran (auto) Absolute Neuts (auto) Absolute Nucleated RBC Nucleated RBC % (auto) Smear Tech's Comments VBG pH 6.95 L* VBG pCO2 15 VBG pO2 90 VBG HCO3 3 L VBG O2 Saturation 93.0 VBG Base Excess -26.7 Anion Gap Estim Creat Clear Calc Estimated GFR POC Glucose 422 H* Random Glucose Estimat Average Glucose Hemoglobin A1c % Calcium Phosphorus Magnesium Total Bilirubin Direct Bilirubin AST ALT Alkaline Phosphatase Total Protein Albumin Lipase Urine Color YELLOW Urine Appearance CLEAR Urine pH 5.5 Ur Specific [place] >= 1.030 H Urine Protein TRACE Urine Glucose (UA) 500 H Urine Ketones >=80 Urine Blood TRACE Urine Nitrite NEG Ur Leukocyte Esterase NEG Urine RBC 0-2 Urine WBC 0-2 Ur Squamous Epith Cells TRACE Urine Bacteria NONE Urine Opiates Screen Urine Fentanyl Screen Ur Barbiturates Screen Ur Phencyclidine Scrn Ur Amphetamines Screen U Benzodiazepines Scrn Urine Cocaine Screen U Marijuana (THC) Screen Acetone, Qual COVID-19 ([facility]AN) COVID-[place] 06/09/22 06/09/22 06/09/22 18:34 19:21 20:31 MCV MCH MCHC RDW Plt Count MPV Immature Gran % (Auto) Neut % (Auto) Lymph % (Auto) [place] % (Auto) Eos % (Auto) Baso % (Auto) Lymph # (Auto) [place] # (Auto) Eos # (Auto) Baso # (Auto) Abs Immat Gran (auto) Absolute Neuts (auto) Absolute Nucleated RBC Nucleated RBC % (auto) Smear Tech's Comments VBG pH VBG pCO2 VBG pO2 VBG HCO3 VBG O2 Saturation VBG Base Excess Anion Gap Estim Creat Clear Calc Estimated GFR POC Glucose 354 H* 305 H Random Glucose Estimat Average Glucose Hemoglobin A1c % Calcium Phosphorus Magnesium Total Bilirubin Direct Bilirubin AST ALT Alkaline Phosphatase Total Protein Albumin Lipase Urine Color Urine Appearance Urine pH Ur Specific [place] Urine Protein Urine Glucose (UA) Urine Ketones Urine Blood Urine Nitrite Ur Leukocyte Esterase Urine RBC Urine WBC Ur Squamous Epith Cells Urine Bacteria Urine Opiates Screen Not Detected Urine Fentanyl Screen Not Detected Ur Barbiturates Screen Not Detected Ur Phencyclidine Scrn Not Detected Ur Amphetamines Screen Not Detected U Benzodiazepines Scrn Not Detected Urine Cocaine Screen Not Detected U Marijuana (THC) Screen Not Detected Acetone, Qual COVID-19 (MEGHAN) COVID-[place] 06/09/22 06/09/22 06/09/22 21:21 21:30 22:17 MCV MCH MCHC RDW Plt Count MPV Immature Gran % (Auto) Neut % (Auto) Lymph % (Auto) [place] % (Auto) Eos % (Auto) Baso % (Auto) Lymph # (Auto) [place] # (Auto) Eos # (Auto) Baso # (Auto) Abs Immat Gran (auto) Absolute Neuts (auto) Absolute Nucleated RBC Nucleated RBC % (auto) Smear Tech's Comments VBG pH VBG pCO2 VBG pO2 VBG HCO3 VBG O2 Saturation VBG Base Excess Anion Gap 27 H Estim Creat Clear Calc 55.1 Estimated GFR 41 POC Glucose 253 H 193 H Random Glucose 253 H D Estimat Average Glucose Hemoglobin A1c % Calcium 9.3 Phosphorus Magnesium 2.2 Total Bilirubin Direct Bilirubin AST ALT Alkaline Phosphatase Total Protein Albumin Lipase Urine Color Urine Appearance Urine pH Ur Specific [place] Urine Protein Urine Glucose (UA) Urine Ketones Urine Blood Urine Nitrite Ur Leukocyte Esterase Urine RBC Urine WBC Ur Squamous Epith Cells Urine Bacteria Urine Opiates Screen Urine Fentanyl Screen Ur Barbiturates Screen Ur Phencyclidine Scrn Ur Amphetamines Screen U Benzodiazepines Scrn Urine Cocaine Screen U Marijuana (THC) Screen Acetone, Qual COVID-19 ([facility]) COVID-19 [facility] 06/09/22 06/10/22 06/10/22 23:15 00:04 00:45 MCV MCH MCHC RDW Plt Count MPV Immature Gran % (Auto) Neut % (Auto) Lymph % (Auto) [place] % (Auto) Eos % (Auto) Baso % (Auto) Lymph # (Auto) [place] # (Auto) Eos # (Auto) Baso # (Auto) Abs Immat Gran (auto) Absolute Neuts (auto) Absolute Nucleated RBC Nucleated RBC % (auto) Smear Tech's Comments VBG pH VBG pCO2 VBG pO2 VBG HCO3 VBG O2 Saturation VBG Base Excess Anion Gap 23 H Estim Creat Clear Calc 61.9 Estimated GFR 47 POC Glucose 153 H 116 H Random Glucose 115 D Estimat Average Glucose Hemoglobin A1c % Calcium 9.6 Phosphorus Magnesium 2.2 Total Bilirubin Direct Bilirubin AST ALT Alkaline Phosphatase Total Protein Albumin Lipase Urine Color Urine Appearance Urine pH Ur Specific [place] Urine Protein Urine Glucose (UA) Urine Ketones Urine Blood Urine Nitrite Ur Leukocyte Esterase Urine RBC Urine WBC Ur Squamous Epith Cells Urine Bacteria Urine Opiates Screen Urine Fentanyl Screen Ur Barbiturates Screen Ur Phencyclidine Scrn Ur Amphetamines Screen U Benzodiazepines Scrn Urine Cocaine Screen U Marijuana (THC) Screen Acetone, Qual COVID-19 ([facility]) COVID-19 [facility] 0706/10/22 06/10/22 01:21 02:01 02:40 MCV MCH MCHC RDW Plt Count MPV Immature Gran % (Auto) Neut % (Auto) Lymph % (Auto) [place] % (Auto) Eos % (Auto) Baso % (Auto) Lymph # (Auto) [place] # (Auto) Eos # (Auto) Baso # (Auto) Abs Immat Gran (auto) Absolute Neuts (auto) Absolute Nucleated RBC Nucleated RBC % (auto) Smear Tech's Comments VBG pH VBG pCO2 VBG pO2 VBG HCO3 VBG O2 Saturation VBG Base Excess Anion Gap Estim Creat Clear Calc Estimated GFR POC Glucose 112 93 116 H Random Glucose Estimat Average Glucose Hemoglobin A1c % Calcium Phosphorus Magnesium Total Bilirubin Direct Bilirubin AST ALT Alkaline Phosphatase Total Protein Albumin Lipase Urine Color Urine Appearance Urine pH Ur Specific [place] Urine Protein Urine Glucose (UA) Urine Ketones Urine Blood Urine Nitrite Ur Leukocyte Esterase Urine RBC Urine WBC Ur Squamous Epith Cells Urine Bacteria Urine Opiates Screen Urine Fentanyl Screen Ur Barbiturates Screen Ur Phencyclidine Scrn Ur Amphetamines Screen U Benzodiazepines Scrn Urine Cocaine Screen U Marijuana (THC) Screen Acetone, Qual COVID-19 ([facility]) COVID-19 Clin Com 06/10/22 06/10/22 06/10/22 04:09 06:33 08:46 MCV MCH MCHC RDW Plt Count MPV Immature Gran % (Auto) Neut % (Auto) Lymph % (Auto) [place] % (Auto) Eos % (Auto) Baso % (Auto) Lymph # (Auto) [place] # (Auto) Eos # (Auto) Baso # (Auto) Abs Immat Gran (auto) Absolute Neuts (auto) Absolute Nucleated RBC Nucleated RBC % (auto) Smear Tech's Comments VBG pH VBG pCO2 VBG pO2 VBG HCO3 VBG O2 Saturation VBG Base Excess Anion Gap 21 H 23 H Estim Creat Clear Calc 68.7 69.2 Estimated GFR 53 54 POC Glucose 243 H Random Glucose 179 H D 296 H D Estimat Average Glucose Hemoglobin A1c % Calcium 9.1 8.5 D Phosphorus Magnesium 1.9 1.8 Total Bilirubin Direct Bilirubin AST ALT Alkaline Phosphatase Total Protein Albumin Lipase Urine Color Urine Appearance Urine pH Ur Specific [place] Urine Protein Urine Glucose (UA) Urine Ketones Urine Blood Urine Nitrite Ur Leukocyte Esterase Urine RBC Urine WBC Ur Squamous Epith Cells Urine Bacteria Urine Opiates Screen Urine Fentanyl Screen Ur Barbiturates Screen Ur Phencyclidine Scrn Ur Amphetamines Screen U Benzodiazepines Scrn Urine Cocaine Screen U Marijuana (THC) Screen Acetone, Qual COVID-19 ([facility]) COVID-19 [facility] 06/10/22 06/10/22 06/10/22 09:39 10:38 11:41 MCV MCH MCHC RDW Plt Count MPV Immature Gran % (Auto) Neut % (Auto) Lymph % (Auto) [place] % (Auto) Eos % (Auto) Baso % (Auto) Lymph # (Auto) [place] # (Auto) Eos # (Auto) Baso # (Auto) Abs Immat Gran (auto) Absolute Neuts (auto) Absolute Nucleated RBC Nucleated RBC % (auto) Smear Tech's Comments VBG pH VBG pCO2 VBG pO2 VBG HCO3 VBG O2 Saturation VBG Base Excess Anion Gap Estim Creat Clear Calc Estimated GFR POC Glucose 234 H 218 H 219 H Random Glucose Estimat Average Glucose Hemoglobin A1c % Calcium Phosphorus Magnesium Total Bilirubin Direct Bilirubin AST ALT Alkaline Phosphatase Total Protein Albumin Lipase Urine Color Urine Appearance Urine pH Ur Specific [place] Urine Protein Urine Glucose (UA) Urine Ketones Urine Blood Urine Nitrite Ur Leukocyte Esterase Urine RBC Urine WBC Ur Squamous Epith Cells Urine Bacteria Urine Opiates Screen Urine Fentanyl Screen Ur Barbiturates Screen Ur Phencyclidine Scrn Ur Amphetamines Screen U Benzodiazepines Scrn Urine Cocaine Screen U Marijuana (THC) Screen Acetone, Qual COVID-19 ([facility]) COVID-19 [facility] 06/10/22 06/10/22 06/10/22 12:08 12:37 13:41 MCV MCH MCHC RDW Plt Count MPV Immature Gran % (Auto) Neut % (Auto) Lymph % (Auto) [place] % (Auto) Eos % (Auto) Baso % (Auto) Lymph # (Auto) [place] # (Auto) Eos # (Auto) Baso # (Auto) Abs Immat Gran (auto) Absolute Neuts (auto) Absolute Nucleated RBC Nucleated RBC % (auto) Smear Tech's Comments VBG pH VBG pCO2 VBG pO2 VBG HCO3 VBG O2 Saturation VBG Base Excess Anion Gap 13 Estim Creat Clear Calc 73.8 Estimated GFR 58 POC Glucose 166 H 105 Random Glucose 209 H Estimat Average Glucose Hemoglobin A1c % Calcium 8.7 Phosphorus Magnesium Total Bilirubin Direct Bilirubin AST ALT Alkaline Phosphatase Total Protein Albumin Lipase Urine Color Urine Appearance Urine pH Ur Specific [place] Urine Protein Urine Glucose (UA) Urine Ketones Urine Blood Urine Nitrite Ur Leukocyte Esterase Urine RBC Urine WBC Ur Squamous Epith Cells Urine Bacteria Urine Opiates Screen Urine Fentanyl Screen Ur Barbiturates Screen Ur Phencyclidine Scrn Ur Amphetamines Screen U Benzodiazepines Scrn Urine Cocaine Screen U Marijuana (THC) Screen Acetone, Qual COVID-19 ([facility]) COVID-19 Clin Com
--- NOTE | 2022-06-10 14:41 | PC.NURSE ---
at 1330 provider d/c both d5 and insulin r/t lab results . diet advanced . sliding insulin scale ordered . meal ordered . patient downgraded to hospitalist services . patient aware of plan of care .
[2022-06-10 14:57] LABS: Venous Blood Gas Refer to POC result
[2022-06-10 15:00] LABS: VBG Base Excess -5.7 mmol/L; VBG HCO3 18 mmol/L (22-26); VBG pCO2 32 mmHg; VBG pH 7.36 (7.32-7.43); VBG pO2 54 mmHg
[2022-06-10 15:22] LABS: Anion Gap 18 (12-20); Blood Urea Nitrogen 18 mg/dL (9-16); Calcium 8.9 mg/dL (8.4-10.2); Carbon Dioxide 18 mmol/L (22-29); Chloride 109 mmol/L (96-108); Creatinine Clr Calc Pharmacy 80.3; Estimated Glomerular Filt Rate > 60; Glucose Random 149 mg/dL (60-115); Lactic Acid 0.8 mmol/L (0.5-2.0); Potassium 4.2 mmol/L (3.3-5.1); Sodium 141 mmol/L (135-145)
[2022-06-10 18:10] LABS: Glucose, Whole Blood 354 mg/dL (60-115)
--- NOTE | 2022-06-10 18:43 | PC.NURSE ---
Pt's BG 354. Gabby Matthews DIRECT SUPPORT PROFESSIONAL made aware of this. Verbal orers given to add 40units of lantus and change his sliding scale as entered in the computer. She also gave orders to add 5units of insulin to the sliding scale coverage with each meal. Pt is eating dinner at this time. Will continue to monitor blood glucose.
[2022-06-10] MEDS: Insulin Lispro 100 UNIT/ML 3 ML VIAL SUBCUT ×4 (18:49→20:08)
--- NOTE | 2022-06-10 19:23 | PC.NURSE ---
Addendum entered by Jeanie Frederick 06/11/22 07:01: report given to SARATH Wong Addendum entered by Jeanie Frederick 06/10/22 19:59: pt is alert and oriented. resting in bed. no signs of acute distress notice. breathing equally unlabored. pt on continuos cardiac monitoring hospitalist DR. Gonsales made aware of BS 471, will cover per protocol Original Note: report received from SARATH Clemens and Nidia
[2022-06-10 19:58] LABS: Glucose, Whole Blood 476 mg/dL (60-115)
[2022-06-10] MEDS: Insulin Glargine,Hum.rec.anlog 100 UNIT/ML 10 ML VIAL 40 UNIT SUBCUT (20:08)
[2022-06-10] MEDS: Insulin Regular, Human 100 UNIT/ML 3 ML VIAL 8 UNIT IVPUSH (20:48)
[2022-06-10 20:57] LABS: Glucose, Whole Blood 326 mg/dL (60-115)
[2022-06-11 00:01] VITALS: BP 112/68; PULSE 93; RESP 20; O2SAT 97
[2022-06-11 05:58] VITALS: BP 112/69; PULSE 82; RESP 16; TEMP 37.2; O2SAT 100
[2022-06-11 05:59] VITALS: BMI 26.5
[2022-06-11] MEDS: Pantoprazole Sodium 40 MG/10 ML VIAL IVPUSH (06:01)
[2022-06-11 07:10] LABS: Glucose, Whole Blood 196 mg/dL (60-115)
[2022-06-11] MEDS: Insulin Lispro 100 UNIT/ML 3 ML VIAL SUBCUT ×4 (07:43→13:17)
[2022-06-11 08:06] VITALS: BP 125/64; PULSE 81; RESP 17; O2SAT 100
[2022-06-11 09:44] LABS: Hematocrit 37.2 % (42.0-52.0); Hemoglobin 12.5 g/dl (14.0-18.0); Mean Corpuscular HGB Conc 33.6 g/dl (31.0-36.0); Mean Corpuscular Hemoglobin 27.8 pg (27.0-33.0); Mean Corpuscular Volume 82.9 fL (80.0-98.0); Mean Platelet Volume 9.7 fL (9.4-12.4); Platelet Count 206 X10*3/uL (160-400); Red Blood Count 4.49 X10*6/uL (4.60-5.80); Red Cell Distribution Width 13.7 % (11.0-16.0); White Blood Count 6.2 X10*3/uL (4.8-10.8)
--- NOTE | 2022-06-11 11:52 | P.DS_ITS ---
DS: Providers Provider Date of Service: 06/11/22 Date of admission: 06/10/22 06:34 Primary care physician: None Physician DS: Diagnosis Discharge Diagnosis (1) DKA (diabetic ketoacidosis): Status: Acute (2) Acute hyperkalemia: Status: Acute (3) Acute kidney injury: Status: Acute (4) Uncontrolled diabetes mellitus with hyperglycemia: Status: Acute DS: Summary Hospital Course Hospital Course: Admission note HPI The patient is a 41-year-old male with PMHx of DM, on insulin.? Never been to [facility] before.? Came ambulatory to the emergency room yesterday afternoon complaining of hyperglycemia, stated that he ran out of insulin 2 days prior.? He says that he is usually compliant with his medication, but he told me that he had two prior episodes of DKA, and his last hemoglobin A1c was 14.? He also has had previous renal dysfunction. In the ED, the patient was fully alert and oriented.? He was tachycardic but otherwise had unremarkable vital signs, with a respiratory rate of 20.? General physical exam was unremarkable.? Labs in the ED were notable for a white count of 22; chemistries were notable for a glucose of 709, bicarb of 5, BUN/creatinine 25/1.9, potassium 6.2, sodium of 130. ?Hemoglobin A1c was 13. Hospital course The patient was admitted under ICU coverage but remained in ED for nursing staff having. He was treated with IV fluid and IV insulin with good response as his acetone gap closed and blood sugar level dropped below 200. IV fluid changed to dextrose and he was started on his Lantus insulin with good tolerance of diet. Anion gap closed and bicarb level improved. Overnight he tolerated diet and was able to ambulate on room air with no hypoxia. His WBCs improved back to normal with resolution of Sim and hyperkalemia. We discussed the need of better glycemic control time of discharge and close monitoring and follow-up by his PCP. Insulin will be prescribed with higher doses rum his home does to local pharmacy as he is visiting here from [place]. Diabetic diet Increase insulin Lantus to 50 units at bedtime Continue mealtime insulin of 15-20 units Start metformin 500 mg twice daily To follow-up with your primary care closely for further adjustments of the treatment Time Spent with Patient Time attestation: Total time spent providing and/or coordinating discharge services: Discharge coordination time: Greater than 30 minutes Quality: Safe Use of Opioids Does Pt have an Active Cancer Diagnosis on the Problem List?: No Quality: Stroke Does the patient have a stroke diagnosis?: No Physical Exam Vital Signs: Vital Signs: Last Vital Signs Temp 99 F 06/11/22 05:58 Pulse 81 06/11/22 08:06 Resp 17 06/11/22 08:06 BP 125/64 06/11/22 08:06 Pulse Ox 100 06/11/22 08:06 O2 Del Method 06/11/22 08:06 BMI result Body Mass Index 26.5 Const: Other: Constitutional : Alert, oriented, not in distress Neck : Normal inspection, Supple Cardiovascular : RRR, no JVP, no lower extremity edema Respiratory : fair bilateral air entry, no crackles, wheezes or rhonchi Gastrointestinal: soft, lax, Normal bowel sounds, Non tender Skin : Warm, Dry Neurological : Alert & oriented x3, No focal deficit , CN 2-12 within normal DS: Data Data Completed and Pending Labs on day of discharge: Laboratory Results - last 24 hr 06/10/22 06/10/22 06/10/22 12:08 12:37 13:41 WBC RBC Hgb Hct MCV MCH MCHC RDW Plt Count MPV Absolute Nucleated RBC Nucleated RBC % (auto) VBG pH VBG pCO2 VBG pO2 VBG HCO3 VBG O2 Saturation VBG Base Excess Sodium 142 Potassium 3.7 Chloride 111 H Carbon Dioxide 22 Anion Gap 13 BUN 19 H Creatinine 1.36 Estim Creat Clear Calc 73.8 Estimated GFR 58 POC Glucose 166 H 105 Random Glucose 209 H Lactic Acid Calcium 8.7 06/10/22 06/10/22 06/10/22 14:49 14:49 14:56 WBC RBC Hgb Hct MCV MCH MCHC RDW Plt Count MPV Absolute Nucleated RBC Nucleated RBC % (auto) VBG pH 7.36 VBG pCO2 32 VBG pO2 54 VBG HCO3 18 L VBG O2 Saturation 84.0 VBG Base Excess -5.7 Sodium 141 Potassium 4.2 Chloride 109 H Carbon Dioxide 18 L Anion Gap 18 BUN 18 H Creatinine 1.25 Estim Creat Clear Calc 80.3 Estimated GFR > 60 POC Glucose Random Glucose 149 H Lactic Acid 0.8 Calcium 8.9 06/10/22 06/10/22 06/10/22 18:05 19:54 20:53 WBC RBC Hgb Hct MCV MCH MCHC RDW Plt Count MPV Absolute Nucleated RBC Nucleated RBC % (auto) VBG pH VBG pCO2 VBG pO2 VBG HCO3 VBG O2 Saturation VBG Base Excess Sodium Potassium Chloride Carbon Dioxide Anion Gap BUN Creatinine Estim Creat Clear Calc Estimated GFR POC Glucose 354 H* 476 H* 326 H Random Glucose Lactic Acid Calcium 06/11/22 06/11/22 07:07 09:37 WBC 6.2 RBC 4.49 L Hgb 12.5 L Hct 37.2 L MCV 82.9 MCH 27.8 MCHC 33.6 RDW 13.7 Plt Count 206 D MPV 9.7 Absolute Nucleated RBC 0.000 Nucleated RBC % (auto) 0.0 VBG pH VBG pCO2 VBG pO2 VBG HCO3 VBG O2 Saturation VBG Base Excess Sodium Potassium Chloride Carbon Dioxide Anion Gap BUN Creatinine Estim Creat Clear Calc Estimated GFR POC Glucose 196 H Random Glucose Lactic Acid Calcium Discharge Plan Discharge Patient Disposition: Home, Self-Care Discharge Diagnosis: Diabetic ketoacidosis Uncontrolled diabetes type 2 Referrals: Physician,None [Primary Care Provider] - 1 Week Discharge Medications: New metformin 500 mg tablet 500 mg PO BIDWMEAL Qty: 60 0RF Continued oxycodone-acetaminophen 5-325 mg tablet 1 tab PO TID PRN (Reason: Back Pain) insulin lispro [Admelog SoloStar U-100 Insulin] 100 unit/mL insulin pen 12 - 16 unit subcut TIDAC Qty: 30 1RF Changed insulin glargine-yfgn 100 unit/mL (3 mL) insulin pen 50 unit subcut BEDTIME Qty: 30 1RF Discharge Orders: Discharge Order (Routine); Ordered 06/11/22 Ordered By: Ro Haji Diet: Diabetic diet Activity on Discharge: As tolerated Stand Alone Forms: Patient Portal Discharge page, Work/School Release Care Plan Goals: Read below Health Concerns: Read below Plan of Treatment: Read below Assessment: You were admitted to the hospital for treatment of diabetic ketoacidosis attack. Your blood was found to be acidotic requiring IV fluid, IV insulin with good response over the course of hospital stay as your symptoms resolved a new became able to tolerate diet. Your HbA1c was noted to be elevated at 13.3. You will need strict control over your blood sugar. Diabetic diet Increase insulin Lantus to 50 units at bedtime Continue mealtime insulin of 15-20 units Start metformin 500 mg twice daily To follow-up with your primary care closely for further adjustments of the treatment
[2022-06-11 12:01] VITALS: BP 117/71; PULSE 77; RESP 18; TEMP 36.7; O2SAT 97
[2022-06-11 13:16] LABS: Glucose, Whole Blood 194 mg/dL (60-115)
== END 2022-06-11 13:51 | disposition home or self-care (01) | DRG 638 ==
LOC: HO.ED 17:59 → HO.EDOVER 06-10 06:37
PROVIDERS: Anesthesiology; Emergency Medicine Emergency Medical Services; Admitting Provider Physician Assistant Medical; Emergency Provider Emergency Medicine; Visit Provider Student in an Organized Health Care Education/Training Program
DX: E11.10 Type 2 diabetes mellitus with ketoacidosis without coma (principal); N17.9 Acute kidney failure, unspecified; T38.3X6A Underdosing of insulin and oral hypoglycemic [antidiabetic] drugs, initial encounter; E87.5 Hyperkalemia; Z20.822 Contact with and (suspected) exposure to COVID-19; Z79.4 Long term (current) use of insulin; Z79.84 Long term (current) use of oral hypoglycemic drugs
CPT/HCPCS: 36415; 80048; 80076; 80307; 81001; 82009; 82803; 82947; 83036; 83605; 83690; 83735; 84100; 85025; 85027; 87635; 93005; 99285; J0610; J2405